=== PATIENT | male | born 1950 | race Caucasian/White ===

== ENCOUNTER 2016-05-19 07:33 | Day surgery (SDC) | payer OTHER ==
[2016-05-19] MEDS ORDERED: LIDOCAINE 1% 2 ML INJ ONE (08:03)
[2016-05-19] MEDS ORDERED: LIDOCAINE 1% 2 ML INJ ID PRN (09:01)
[2016-05-19] MEDS ORDERED: LR 1,000 ML IV SCH (09:30)
--- NOTE | 2016-05-19 11:04 | GPN ---
[f rep st] PROCEDURE NOTE DATE OF PROCEDURE: 05/19/2016 PROCEDURE PERFORMED: Colonoscopy with polypectomy, biopsy, injection, and argon plasma coagulation. 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 I n addition, he had some smaller distal hyperplastic polyps in the sigmoid colon and rectum that were removed. There was also some mild diverticulosis in the descending colon. PREPROCEDURE DIAGNOSIS: Rule out residual polyp. POSTPROCEDURE DIAGNOSIS: 1. Large amount of residual polyp in the cecum, status post snare removal with electrocautery, dest ruction of remaining tissue with argon plasma coagulation, and Mesha ink injection for tattooing for future reference. 2. 2 to 3 mm sigmoid polyp, removed en toto by cold biopsy in piecemeal fashion. 3. 5 mm semi sessile rectal polyp, removed en toto by cold snare. 4. Mild left-sided diverticulosis. INFORMED CONSENT: I had a detailed discussion with the patient regarding the procedure, alternative s, benefits, and risks including bleeding, perforation, infection, risk of medication. Informed con sent was signed and witnessed. COMPLICATIONS: None immediate. MEDICATIONS: Versed 5 mg IV, fentanyl 100 mcg IV. DESCRIPTION OF PROCEDURE: After adequate sedation and patient in left lateral decubitus position, t he visual and digital anorectal examination was performed. A forward viewing colonoscope was insert ed via the rectum and advanced under visualization into the cecum, identified by ileocecal valve, co nfluence of taenia, appendicial orifice. Residual polyp was noted at a previous polypectomy site. This is still quite large. This was removed in a piecemeal fashion with snare electrocautery. Kirsty ining residual tissue was burned with the argon plasma motion picture photographer, and the area was inked with 3 cc of Mesha ink and 1.5 injections on either side of the polyp resection spot. Upon withdrawal of the instrument, careful attention made to gross detail. The prep was good. There was an additional 2-3 mm polyp noted in the sigmoid colon removed en toto by cold biopsy. Retroflex examination did reve al a 5 mm polyp in the distal rectum removed en toto by cold snare. Patient did have mild left-side d diverticulosis in the sigmoid and descending colon. The endoscope was withdrawn confirming the ab ove findings. The patient tolerated the procedure well and was transferred to the recovery area in stable condition. IMPRESSION: 1. Large cecal residual polyp, status post piecemeal removal with snare electrocautery, argon plasm a coagulation destruction of any remaining tissue, and Mesha ink injection for future reference. 2. Small sigmoid polyp measuring 2-3 mm removed en toto by cold biopsy. 3. Small polyp in the rectum measuring approximately 5 mm, semi sessile, removed en toto by cold sn are. 4. Mild left-sided diverticulosis. RECOMMENDATIONS: 1. Follow up pathology of polyps. 2. Repeat colonoscopy in 6 months at the hospital for possible use of APC. 3. High-fiber high fluid diet. 4. No need to avoid seeds and nuts with diverticulosis. 5. Follow up with PCP as scheduled. 6. Avoid aspirin and anti-inflammatory for 1 week secondary to polypectomy. Currently, he is on no medications. If he is using aspirin for cardiac prophylaxis, he can continue that. 7. Follow up with Dr. Sims as scheduled. Thank you for allowing us to participate in this patient's healthcare. Do not hesitate to call me. /[id number]/MODL
[2016-05-19] MEDS ORDERED: fentaNYL 100 MCG/2 ML INJ ONE (14:34)
[2016-05-19] MEDS ORDERED: MIDAZOLAM 2 MG/2 ML VIAL ONE ×2 (14:34→14:36)
== END 2016-05-19 11:00 | disposition home or self-care (01) ==
LOC: FSGY 07:33
PROVIDERS: ATTEND Internal Medicine Gastroenterology
PROC: 0DBP8ZX Excision of Rectum, Via Natural or Artificial Opening Endoscopic, Diagnostic (ICD-10-PCS; principal; 2016-05-19 09:00)
PROC: 0D5E8ZZ Destruction of Large Intestine, Via Natural or Artificial Opening Endoscopic (ICD-10-PCS; principal; 2016-05-19 09:00)
PROC: 0DBN8ZX Excision of Sigmoid Colon, Via Natural or Artificial Opening Endoscopic, Diagnostic (ICD-10-PCS; principal; 2016-05-19 09:00)
PROC: 0DBH8ZX Excision of Cecum, Via Natural or Artificial Opening Endoscopic, Diagnostic (ICD-10-PCS; principal; 2016-05-19 09:00)
DX: Z12.11 Encounter for screening for malignant neoplasm of colon (principal); D12.0 Benign neoplasm of cecum; D12.5 Benign neoplasm of sigmoid colon; D12.8 Benign neoplasm of rectum; K57.30 Diverticulosis of large intestine without perforation or abscess without bleeding
CPT/HCPCS: J2250; J3010

== ENCOUNTER 2016-06-02 09:57 | Emergency (ER) | payer OTHER ==
[2016-06-02 10:02] VITALS: TEMP 97.9
--- NOTE | 2016-06-02 10:13 | EDPHY ---
H & P Time Seen by Provider: 06/02/16 10:12 HPI/ROS: CHIEF COMPLAINT: Episode of dark stool HISTORY OF PRESENT ILLNESS: This 66-year-old man had colonoscopy with polypectomy by Dr. Kenan King 2 weeks ago. 1 week ago he was driving back from [place] and started having dylan bloody stools and eventually was transferred to [facility] where he had colonoscopy by Dr. Renae on May 27. He brought the report with him and at that time he had 5 endo clips placed for bleeding in the area of his previous polypectomy. Today he had an episode of dark stools. He felt a little bit dizzy and lightheaded on standing. He had a couple of these episodes but no maroon or bloody stool. No nausea or vomiting. REVIEW OF SYSTEMS: Eye: no change in vision ENT: no sore throat Cardiac: no chest pain or syncope Pulmonary: no cough or SOB Abdomen: HPI Musculoskeletal: no back pain Skin: no rash Neuro: no headache Constitutional: no fever : no urinary symptoms A comprehensive 10 point review of systems is otherwise negative aside from elements mentioned in the history of present illness. PAST MEDICAL HISTORY: Colonoscopy with polyp removal as above, hypercholesterolemia Social history: , here with his General Appearance: Alert and conversant, cooperative. Eyes: No scleral icterus. ENT, Mouth: Normal mucous membranes. Respiratory: Normal respiratory effort, breath sounds equal, lungs are clear to auscultation. Cardiovascular: Regular rate and rhythm. Gastrointestinal: Abdomen is soft and non tender. Neurological: Alert and oriented x3. Normally conversant. Face symmetric, normal movement and sensation in all extremities. Skin: Warm and dry, no rashes. Musculoskeletal: No peripheral edema and no joint swelling. Psychiatric: Not agitated. Emergency Department course/MDM: Patient is ambulatory. He brought the stool in with him which is black and dark. He has not had maroon or red stools. Case discussed in detail with Dr. Luisito Gillette who is longwall machine operator helper for [facility] who agrees with discharge as the patient is likely just passing blood from his previous procedure. Does not appear to be highly likely he has acute new active bleed. Patient states he is comfortable with discharge will return if he gets active bleeding. Smoking Status: Never smoked Constitutional: Initial Vital Signs Temperature (C) 36.6 C 06/02/16 09:58 Heart Rate 107 H 06/02/16 09:58 Respiratory Rate 18 06/02/16 09:58 Blood Pressure 135/69 H 06/02/16 09:58 O2 Sat (%) 97 06/02/16 09:58 O2 Delivery Mode Room Air Allergies/Adverse Reactions: ampicillin [Ampicillin] Allergy (Verified 06/02/16 09:58) IV CONTRAST Allergy (Uncoded 04/24/11 14:33) Home Medications: Medication Instructions Recorded Atorvastatin Calcium [Lipitor 40 40 mg PO 06/02/16 mg (*)] Medical Decision Making Differential Diagnosis: Differential considered including but not limited to upper GI bleed, lower GI bleed, black stools from iron or food, clot sloughing. Consult/Admit Bed Type: [address] - Data Points Laboratory Results: Laboratory Results 06/02/16 10:15 06/02/16 10:15 06/02/16 06/02/16 10:15 10:15 WBC 9.60 10^3/uL H 10^3/uL (3.80-9.50) RBC 4.47 10^6/uL 10^6/uL (4.40-6.38) Hgb 13.5 g/dL L g/dL (13.7-17.5) Hct 39.9 % L % (40.0-51.0) MCV 89.3 fL fL (81.5-99.8) MCH 30.2 pg pg (27.9-34.1) MCHC 33.8 g/dL g/dL (32.4-36.7) RDW 14.3 % % (11.5-15.2) Plt Count 342 10^3/uL 10^3/uL (150-400) MPV 9.7 fL fL (8.7-11.7) Neut % (Auto) 63.6 % % (39.3-74.2) Lymph % (Auto) 26.5 % % (15.0-45.0) [place] % (Auto) 7.8 % % (4.5-13.0) Eos % (Auto) 1.0 % % (0.6-7.6) Baso % (Auto) 0.7 % % (0.3-1.7) Nucleat RBC Rel Count 0.0 % % (0.0-0.2) Absolute Neuts (auto) 6.10 10^3/uL 10^3/uL (1.70-6.50) Absolute Lymphs (auto) 2.54 10^3/uL 10^3/uL (1.00-3.00) Absolute Monos (auto) 0.75 10^3/uL 10^3/uL (0.30-0.80) Absolute Eos (auto) 0.10 10^3/uL 10^3/uL (0.03-0.40) Absolute Basos (auto) 0.07 10^3/uL 10^3/uL (0.02-0.10) Absolute Nucleated RBC 0.00 10^3/uL 10^3/uL (0-0.01) Immature Gran % 0.4 % % (0.0-1.1) Immature Gran # 0.04 10^3/uL 10^3/uL (0.00-0.10) Sodium 142 mEq/L mEq/L (134-144) Potassium 4.4 mEq/L mEq/L (3.5-5.2) Chloride 109 mEq/L mEq/L (97-110) Carbon Dioxide 23 mEq/l mEq/l (22-31) Anion Gap 10 mEq/L mEq/L (8-16) BUN 19 mg/dL mg/dL (7-23) Creatinine 1.0 mg/dL mg/dL (0.7-1.3) Estimated GFR > 60 Glucose 104 mg/dL H mg/dL (70-100) Calcium 9.4 mg/dL mg/dL (8.5-10.4) Departure - Departure Disposition: Home, Routine, Self-Care Clinical Impression: Gastrointestinal bleeding, lower Condition: Good Instructions: Flexible Sigmoidoscopy (ED) Additional Instructions: Return immediately for any further rectal bleeding, worsening dizziness or lightheadedness or fainting. Referrals: Susan Sims MD [Primary Care Provider] - As per Instructions Allen King MD [Medical Doctor] - As per Instructions
[2016-06-02 10:53] LABS: % IMMATURE GRANULYOCYTES 0.4 % (0.0-1.1); ABSOLUTE IMMATURE GRANULOCYTES 0.04 10^3/uL (0.00-0.10); ADD DIFF? NO; ADD MORPH? NO; ADD SCAN? NO; ATYPICAL LYMPHOCYTE FLAG 0 (0-99); FRAGMENT RBC FLAG 0 (0-99); HEMATOCRIT 39.9 % (40.0-51.0); HEMOGLOBIN 13.5 g/dL (13.7-17.5); LEFT SHIFT FLG 0 (0-99); LIPEMIA HEMOLYSIS FLAG 90 (0-99); MEAN CELL HEMOGLOBIN 30.2 pg (27.9-34.1); MEAN CELL HEMOGLOBIN CONCENTR. 33.8 g/dL (32.4-36.7); MEAN CELL VOLUME 89.3 fL (81.5-99.8); MEAN PLATELET VOLUME 9.7 fL (8.7-11.7); PLATELET CLUMPS FLAG 0 (0-99); PLATELET COUNT 342 10^3/uL (150-400); RED BLOOD CELL COUNT 4.47 10^6/uL (4.40-6.38); RED CELL DISTRIBUTION WIDTH 14.3 % (11.5-15.2)
[2016-06-02 10:56] LABS: ANION GAP 10 mEq/L (8-16); CALCIUM 9.4 mg/dL (8.5-10.4); CARBON DIOXIDE 23 mEq/l (22-31); CHLORIDE 109 mEq/L (97-110); GLOMERULAR FILTRATION RATE > 60; GLUCOSE 104 mg/dL (70-100); POTASSIUM 4.4 mEq/L (3.5-5.2); SODIUM 142 mEq/L (134-144)
[2016-06-02 11:01] VITALS: RESP 16; O2SAT 95
[2016-06-02 11:49] VITALS: BP 104/69; PULSE 84
== END 2016-06-02 11:48 | disposition home or self-care (01) ==
DX: K52.9 Noninfective gastroenteritis and colitis, unspecified (principal)

== ENCOUNTER → 2017-01-09 | Day surgery (SDC) | payer OTHER ==
[~2017-01-09] MED LIST: LIDOCAINE 1% 2 ML INJ ID PRN; LR 1,000 ML IV ONE; MIDAZOLAM 2 MG/2 ML VIAL IVP ONE; MIDAZOLAM 2 MG/2 ML VIAL ONE; fentaNYL 100 MCG/2 ML INJ IVP ONE; fentaNYL 100 MCG/2 ML INJ ONE
--- NOTE | 2017-01-09 12:12 | PDANEPAE ---
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 - Pulmonary History Hx COPD: No Hx Asthma/Reactive Airway Disease: No Hx Recent Upper Respiratory Infection: No Hx Oxygen in Use at Home: No Hx Sleep Apnea: No Sleep Apnea Screening Result - Last Documented: Negative - Neurologic History Hx Cerebrovascular Accident: No Hx Seizures: No Hx Dementia: No - Endocrine History Hx Diabetes: No - Renal History Hx Renal Disorders: No - Liver History Hx Hepatic Disorders: No - Neurological & Psychiatric Hx Hx Neurological and Psychiatric Disorders: No - Cancer History Hx Cancer: Yes Cancer History Comment: SKIN CA FACE REMOVED - BASAL CELL 15YRS AGO - Congenital Disorder History Hx Congenital Disorders: No - GI History Hx Gastrointestinal Disorders: Yes Gastrointestinal History Comment: HEARTBURN - TUMS - Other Health History Other Health History: CONTACT DERMATIS - Chronic Pain History Chronic Pain: No - Surgical History Prior Surgeries: T&A. EYE MUSCLE CORRECTION. ANGIOGRAM 10 YRS AGO ANE Review of Systems Review of systems is: negative Review of Systems: - Exercise capacity Exercise capacity: >=4 METS METS (RN): 4 METS ANE Patient History - Allergies Allergies/Adverse Reactions: ampicillin [Ampicillin] Allergy (Verified 06/02/16 09:58) IV CONTRAST Allergy (Uncoded 04/24/11 14:33) - Home Medications Home Medications: Atorvastatin Calcium [Lipitor 40 mg (*)] 40 mg PO 06/02/16 [Last Taken 01/08/17] - NPO status NPO Status: no food or drink >8 hours NPO Since - Liquids (Date): 01/09/17 NPO Since - Liquids (Time): 03:15 NPO Since - Solids (Date): 01/08/17 NPO Since - Solids (Time): 08:45 - Smoking Hx Smoking Status: Never smoked - Alcohol Use Alcohol Use: Rarely - Family Anes Hx Family Anes Hx: none Family Hx Anesthesia Complications: NEG ANE Labs/Vital Signs - Vital Signs Blood Pressure: 128/86 Heart Rate: 91 Respiratory Rate: 16 O2 Sat (%): 96 Height: 190.5 cm Weight: 107.501 kg ANE Physical Exam - Airway Neck exam: FROM Mallampati Score: Class 3 - Pulmonary Pulmonary: no respiratory distress - Cardiovascular Cardiovascular: regular rate and rhythym - ASA Status ASA Status: II ANE Anesthesia Plan Anesthesia Plan: GA with mask
--- NOTE | 2017-01-09 12:28 | PDPROPOC ---
Sedation Plan of Care Sedation Plan of Care: mental status noted, patient educated of risks, benefits , alternatives, patient can tolerate sedation ASA Classification: ASA 2 Planned drugs: fentanyl, midazolam Mallampati Score: Class 2 Mallampati Reference Image: 2 Patient passed 3-3-2 rule?: Yes
--- NOTE | 2017-01-09 12:30 | PDGENHP ---
History & Physical Chief Complaint: phx polyps History of Present Illness: polyps piecemela removal Pertinent Past, Social, Family History: no tobacco, one per week, no fhx cc Relevant Physical Exam: a+ox3. CTA. S1S2. +BS, soft nt Cardiorespiratory Assessment: class 2 pt
--- NOTE | 2017-01-09 13:17 | POSTOPPROG ---
Post Op Note Date of Operation: 01/09/17 Surgeon: Allen King Anesthesia: IV Sedation Pre-op Diagnosis: piecemeal polypectomy large cecal polyp Post-op Diagnosis: abnl tisue at previous polypectomy site, tiny transverse polyp, tics Indication: piecemeal polypectomy adenomatous polyp in cecum Procedure: colon with polyp, bx, fb removal (clip from post polypectomy bleed Findings: abnl tissue at cecal polyplectomy site s/p snare and bx, tiny prox tc polyp Inf/Abcess present in the surg proc area at time of surgery?: No EBL: Minimal (few ml form bx) Total fluids administered: 450 ml LR Complications: none immediate
--- NOTE | 2017-01-09 13:24 | GIREPORT ---
[facility] Surgical Services - Endoscopy Department Patient Name: Braxton Espana Procedure Date: 01/09/2017 12:37 PM Patient Type: Outpatient Attending MD/ ER Physician: David Day Procedure: Colonoscopy Indications: Surveillance: Personal history of piecemeal removal of large sessile ad enoma on last colonoscopy (less than 1 year ago) Providers: Jeremías King MD Medicines: Fentanyl 100 micrograms IV, Midazolam 5 mg IV Complications: No immediate complications. Estimated blood loss: Minimal. Description of Procedure: After obtaining informed consent, the scope was passed under direct vis ion. Throughout the procedure, the patient's blood pressure, pulse, and oxyg en saturations were monitored continuously. The Colonoscope with irrigatio n channel was introduced through the anus and advanced to the terminal il eum, with identification of the appendiceal orifice and IC valve. The colono scopy was performed without difficulty. The patient tolerated the procedure w ell. The quality of the bowel preparation was good. Findings: The digital rectal exam was normal. The terminal ileum appeared normal. A post polypectomy scar was found in the cecum. There was residual poly poid tissue. The polyp was removed with a hot snare. Resection and retrieval were complete. Estimated blood loss was minimal. Biopsies were taken with a cold forceps for histology. Estimated blood loss was minimal. Two sessile polyps were found in the proximal transverse colon. The donaldo yps were 2 mm in size. These polyps were removed with a cold biopsy forceps . Resection and retrieval were complete. Estimated blood loss was minimal . Medium-mouthed diverticula were found in the sigmoid colon, descending colon and transverse colon. A foreign body was found in the cecum. Removal of an endoclip was accomplished with a large-capacity forceps and snare. Estimated blood l oss: none. The exam was otherwise without abnormality. Estimated Blood Loss: Estimated blood loss was minimal. Post Op Diagnosis: - The examined portion of the ileum was normal. - Post-polypectomy scar in the cecum. Biopsied. - Two 2 mm polyps in the proximal transverse colon, removed with a cold biopsy forceps. Resected and retrieved. - Diverticulosis in the sigmoid colon, in the descending colon and in t he transverse colon. - Foreign body in the cecum. Removal was successful. - The examination was otherwise normal. Recommendation: - Await pathology results. - My office will call with the pathology result with 5-7 days. If you h ave not heard from my office by 14, do not assume the pathology is aida l, please call [phone] to get the pathology results. - Repeat colonoscopy in 1 year for surveillance based on pathology resu lts. - High fiber diet indefinitely. - 30-35 grams of dietary fiber per day. Can use supplemental fiber. - A high fiber diet may decrease risk of complications from diverticulo sis. There is no need to avoid seeds or nuts. - Patient has a contact number available for emergencies. The signs and symptoms of potential delayed complications were discussed with the pat ient. Return to normal activities tomorrow. Written discharge instructions we re provided to the patient. - Continue present medications. - Discharge patient to home (ambulatory). - Return to primary care physician as previously scheduled. - Thank you for allowing me to help in your patient's care. Do not hesi june to call with any questions. Attending Participation: I personally performed the entire procedure. Fernando Veronica M.D Jeremías King MD 01/09/2017 1:24:12 PM This report has been signed electronicallyMatheangely King MD Number of Addenda: 0 Note Initiated On: 01/09/2017 12:37 PM Total Procedure Duration Time 0 hours 26 minutes 54 seconds [email or web address]
[2017-01-09 13:35] VITALS: PULSE 71; RESP 16; TEMP 98.2; O2SAT 98
[2017-01-09 15:27] VITALS: BP 96/30
== END | disposition home or self-care (01) ==
LOC: FSGY 10:57
PROVIDERS: ATTEND Internal Medicine Gastroenterology
PROC: 0DBL8ZX Excision of Transverse Colon, Via Natural or Artificial Opening Endoscopic, Diagnostic (ICD-10-PCS; principal; 2017-01-09 12:15)
PROC: 0DBH8ZX Excision of Cecum, Via Natural or Artificial Opening Endoscopic, Diagnostic (ICD-10-PCS; principal; 2017-01-09 12:15)
PROC: 0DJD8ZZ Inspection of Lower Intestinal Tract, Via Natural or Artificial Opening Endoscopic (ICD-10-PCS; principal; 2017-01-09 12:15)
PROC: 0DCE8ZZ Extirpation of Matter from Large Intestine, Via Natural or Artificial Opening Endoscopic (ICD-10-PCS; principal; 2017-01-09 12:15)
DX: Z12.11 Encounter for screening for malignant neoplasm of colon (principal); Z86.010 Personal history of colon polyps; D12.3 Benign neoplasm of transverse colon; K57.30 Diverticulosis of large intestine without perforation or abscess without bleeding
CPT/HCPCS: J2250; J3010

== ENCOUNTER 2017-09-30 11:26 | Day surgery (SDC) | payer OTHER ==
[2017-09-30] MEDS ORDERED: LR 1,000 ML IV ONE (11:42)
[2017-09-30] MEDS ORDERED: LIDOCAINE 1% 2 ML INJ ID PRN (11:42)
[2017-09-30] MEDS ORDERED: LIDOCAINE 1% 300 MG/30 ML SDV ONE (11:50)
[2017-09-30] MEDS ORDERED: ROPIVACAINE HCL 150 MG/30 ML INJ ONE (11:51)
[2017-09-30] MEDS ORDERED: DEXAMETHASONE 4 MG/ML VIAL ONE (11:51)
[2017-09-30] MEDS ORDERED: BACITRACIN 50,000 UNITS/10 ML SYR IRR ONE (11:52)
--- NOTE | 2017-09-30 12:52 | PDHPUP ---
History & Physical Update H&P update statement: This history and physical update is based on an assessment of the patient which was completed after admission or registration (within 24 hours), but prior to the surgery/procedure. H&P update: H&P reviewed & patient examined (no changes in health, stable), no change in patient's condition since H&P completed
[2017-09-30] MEDS ORDERED: LIDOCAINE 2% 100 MG/5 ML SYR ONE (13:00)
[2017-09-30] MEDS ORDERED: PROPOFOL/EMULSION 500 MG/50 ML BOTTLE IV ONE ×2 (13:00→13:35)
[2017-09-30] MEDS ORDERED: ceFAZolin 2 GM/DEXTROSE 100 ML IV ONE (13:00)
--- NOTE | 2017-09-30 13:02 | PDANEPAE ---
ANE Past Medical History - Cardiovascular History Hx Hypertension: No Hx Arrhythmias: No Hx Chest Pain: No Hx Coronary Artery / Peripheral Vascular Disease: No Hx CHF / Valvular Disease: No Hx Palpitations: No Cardiovascular History Comment: hx of chest wall pain - Pulmonary History Hx COPD: No Hx Asthma/Reactive Airway Disease: No Hx Recent Upper Respiratory Infection: No Hx Oxygen in Use at Home: No Hx Sleep Apnea: No Sleep Apnea Screening Result - Last Documented: Negative - Neurologic History Hx Cerebrovascular Accident: No Hx Seizures: No Hx Dementia: No - Endocrine History Hx Diabetes: No - Renal History Hx Renal Disorders: No - Liver History Hx Hepatic Disorders: No - Neurological & Psychiatric Hx Hx Neurological and Psychiatric Disorders: No - Cancer History Hx Cancer: Yes Cancer History Comment: SKIN CA FACE REMOVED - BASAL CELL 15YRS AGO - Congenital Disorder History Hx Congenital Disorders: No - GI History Hx Gastrointestinal Disorders: Yes Gastrointestinal History Comment: reflux - Other Health History Other Health History: CONTACT DERMATIS - Chronic Pain History Chronic Pain: Yes (lower back pain) - Surgical History Prior Surgeries: T&A. EYE MUSCLE CORRECTION. ANGIOGRAM 10 YRS AGO. bilat cataract ANE Review of Systems Review of Systems: - Exercise capacity METS (RN): 4 METS ANE Patient History - Allergies Allergies/Adverse Reactions: ampicillin [Ampicillin] Allergy (Verified 09/30/17 11:53) Hives IV CONTRAST Allergy (Uncoded 09/30/17 11:53) - Home Medications Home Medications: Atorvastatin Calcium [Lipitor 40 mg (*)] 06/02/16 [Last Taken 09/23/17] Fish Oil 1000 mg (*) 09/25/17 [Last Taken 09/23/17] Flaxseed Oil 09/25/17 [Last Taken 09/23/17] Multivitamin (*) 09/25/17 [Last Taken 09/25/17] Ranitidine HCl 09/25/17 [Last Taken 09/30/17 08:40] Aspirin 81mg (*) 81 mg PO DAILY 09/30/17 [Last Taken 09/18/17] - NPO status NPO Since - Liquids (Date): 09/29/17 NPO Since - Liquids (Time): 22:00 NPO Since - Solids (Date): 09/29/17 NPO Since - Solids (Time): 20:00 - Smoking Hx Smoking Status: Never smoked - Family Anes Hx Family Hx Anesthesia Complications: none ANE Labs/Vital Signs - Vital Signs Blood Pressure: 132/77 Heart Rate: 86 Respiratory Rate: 16 O2 Sat (%): 94 Height: 187.96 cm Weight: 108.862 kg ANE Physical Exam - Airway Neck exam: FROM Mallampati Score: Class 3 Mouth exam: normal dental/mouth exam - Pulmonary Pulmonary: no respiratory distress - Cardiovascular Cardiovascular: regular rate and rhythym - ASA Status ASA Status: II ANE Anesthesia Plan Total IV Anesthesia: Yes
[2017-09-30] MEDS ORDERED: RANITIDINE 50 MG/2 ML VIAL ONE (13:07)
[2017-09-30] MEDS: BUPIVACAINE 0.25% 30 ML SDV ONE ×2 (14:03→14:28)
[2017-09-30] MEDS ORDERED: ONDANSETRON DISINTEGRATING 4 MG TAB PO PRN (14:55)
[2017-09-30] MEDS ORDERED: OXYCODONE/APAP 5/325 TAB PO PRN (14:55)
--- NOTE | 2017-09-30 14:55 | POSTOPPROG ---
Post Op Note Date of Operation: 09/30/17 Surgeon: Donna Mahmood Supervisor [employer]ing [employer] Stamping: Ольга mahmood Anesthesiologist: danielle finn Pre-op Diagnosis: painful 2nd HT, capsulitis/metatarsalgia 2nd MT, left Post-op Diagnosis: same Indication: pain Procedure: HT repair (arthrodesis) 2nd, osteotomy 2nd MT, left Findings: thinning articular cartilage 2nd MTH Inf/Abcess present in the surg proc area at time of surgery?: No EBL: Minimal Complications: none
[2017-09-30] MEDS ORDERED: ALBUTEROL 3 ML DEYVIAL IH PRN (14:57)
[2017-09-30] MEDS ORDERED: NALOXONE HCL 0.4 MG/ML INJ IVP PRN (14:57)
[2017-09-30] MEDS ORDERED: ONDANSETRON 4 MG/2 ML VIAL IVP PRN (14:57)
--- NOTE | 2017-09-30 14:58 | POSTANESTH ---
Post Anesthetic Evaluation Cardiovascular Status: Similar to Pre-Op Cond Respiratory Status: Similar to Pre-op Cond. Level of Consciousness/Mental Status: Alert and Oriented Pain Control: Adequate, Prn Tx Ordered Nausea/Vomiting Control: Adequate, Prn Tx Ordered Complications Possibly Related to Anesthesia: None Noted
[2017-09-30 16:05] VITALS: BP 131/71
--- NOTE | 2017-09-30 19:43 | GOP ---
[f rep st] OPERATIVE REPORT DATE OF OPERATION: 09/30/2017 SURGEON: Donna Chauhan DPM DRAMATIC TEACHER: Олгьа Chauhan DPM. ANESTHESIA: IV sedation with local. ANESTHESIOLOGIST: Castro Chang MD. PREOPERATIVE DIAGNOSIS: Painful 2nd hammertoe deformity with capsulitis and metatarsalgia, 2nd metat arsal, left foot. POSTOPERATIVE DIAGNOSIS: Second hammertoe deformity with synovitis and mild thinning of the articula r surface of the head of the 2nd metatarsal with some squaring. PROCEDURE PERFORMED: Hammertoe reduction with arthrodesis procedure and screw fixation, decompressio n, shortening osteotomy 2nd metatarsal with screw fixation, all left foot. FINDINGS: DESCRIPTION OF PROCEDURE: The patient presented to the hospital approximately an hour and a half rah or to foot surgery after having been n.p.o. past midnight. Patient's preoperative history was review ed and there were no contraindications to the proposed procedure. The patient's labs were reviewed, and his white blood cell count was slightly high. Recommend repeat CBC in 1 week. The patient was g iven Ancef 2 g IV 1/2 hour prior to foot surgery. The patient had no problems with the IV antibiotic . The patient was taken to the OR room and placed on the OR table in a supine position where the approp riate anesthetic agents were administered. This was supplemented with a local block to his left foot utilizing a total of 15 cc of a 1:1 mixture of 1% lidocaine with 0.5% of ropivacaine given to the le ft forefoot proximal to the 2nd metatarsal and to the posterior tibial nerve at the level of the medi al ankle. The left lower extremity was then prepped and draped in usual aseptic fashion and covered with a sterile stockinette. A sterile pneumatic ankle tourniquet was applied and padded well underne ath with Webril. Utilizing elevation overlying Esmarch bandage, the foot was exsanguinated, and the tourniquet was inflated to a pressure of 230 mmHg. The foot was lowered to the orthopedic table. At tention was then directed to the dorsal aspect of the 2nd digit in the area of the contracture at the level of the proximal interphalangeal joint and a linear skin incision was made extending from the l evel of the proximal interphalangeal joint proximally to the level of the 2nd metatarsophalangeal michelet nt and then over the distal 2nd metatarsal. The incision was deepened through the subcutaneous tissu es to the level of the extensor tendon taking care to preserve neurovascular structures. Any bleeder s were clamped and cauterized as needed. The extensor tendon was incised transversely at the level o f the proximal interphalangeal joint and was freed from the surrounding soft tissue structures in a d istal proximal fashion so as to release the contracture at the level of the extensor salter. The capsu lar tissues were reflected off the head of the proximal phalanx and base of the middle phalanx and th en the articular surfaces were resected with a sagittal saw in a dorsal to plantar direction perpendi cular to the shaft of the phalanges. The head of the proximal phalanx and base of the middle phalanx were then placed on the back table. Utilizing the K-wire, a captain/airline pilot hole was created to the center as pect of the distal proximal phalanx. Attention was then directed to the dorsal aspect of the 2nd met atarsophalangeal joint where a linear capsular incision was made and the 1st metatarsophalangeal join t was inspected. There was synovitic tissue to the joint and thinning of the articular surface to th e head of the 1st metatarsal. The shape of the 2nd metatarsal was not round but more square. No art icular defects were present. The decision was made to perform a distal osteotomy to the 2nd metatars al in view of the findings and synovitic tissue. An osteotomy was then created to the distal 1st met atarsal in a distal to proximal fashion. The 2nd metatarsal head then glided proximally, and then it was held approximately 2 mm shorter than its anatomical length. Two guidewires for the screws were then placed in a dorsal distal to plantar proximal direction crossing the osteotomy site for placemen t of the [place] screws. The 1st [place] screw was a 2.5 x 14 mm headless screw. The 2nd more proxi mal screw was a headed 2.5 x 15 mm screw. A C-arm was checked to confirm alignment and placement of the screws, which was optimal. The K-wires were removed. The surgical site was copiously irrigated with sterile saline bacitracin solution. Attention was redirected to the proximal interphalangeal yara int where the guidewire for the 2.0 headless screw was advanced through the center aspect of the base of the middle phalanx, so as to exit the distal tip of the digit. The middle phalanx was then held flush to the proximal phalanx and the K-wire was retrograded proximally. Measurements were obtained, and the decision was made to place a 46 mm 2.0 headless screw across the K-wire, which was performed . Again, the C-arm was utilized to check alignment and placement to check alignment of the digit, wh ich was intact and rectus. The dorsal ledge of bone to the distal 2nd metatarsal was resected and pl aced on the back table. There were no prominent bony borders to the osteotomy site distally. Surgic al sites were copiously irrigated with a sterile saline bacitracin solution. The tourniquet was rele ased. There was immediate capillary refill to all digits. There was hemostasis. The capsular tissu es were reapproximated with 3-0 Vicryl. The extensor tendon was lengthened to the 2nd digit and reap proximated with 3-0 Vicryl. Subcutaneous tissues were reapproximated with 4-0 Monocryl. The skin wa s reapproximated with 4-0 Prolene utilizing interrupted horizontal mattress sutures. The procedure went well without complications. A mildly compressive dry sterile gauze dressing was a pplied with Xeroform, 4 x 4 gauze, Shruti, and an Parker bandage. The patient tolerated the procedure an d anesthesia well and transferred to the recovery room with vital signs stable and vascular status in tact to the left lower extremity. In the recovery room, the patient received postoperative oral and written home care instructions. The patient instructed to utilize crutches for ambulation assist and can bear weight on the left heel for balance but is instructed not to bear weight on the forefoot. He can also use a rollabout for ambulation assist. He was dispensed a CryoCuff and instructed on its usage. Prescription for Percocet was given to take postoperatively as prescribed for pain as needed . He was permitted to take oral anti-inflammatories the 1st 2 days after surgery if needed for pain and swelling. He is scheduled for his 1st postoperative visit in 2 days. Please call the office ear lier if any questions or problems should arise. Postoperative radiographs were ordered and reviewed. The patient was given additional 5 cc of 0.5% b upivacaine prior to application of sterile gauze dressing. /[id number]/MODL
== END 2017-09-30 16:35 | disposition home or self-care (01) ==
LOC: FSGY 11:26
PROVIDERS: ATTEND Podiatrist
PROC: 0QBP0ZZ Excision of Left Metatarsal, Open Approach (ICD-10-PCS; principal; 2017-09-30 13:00)
PROC: 0SGQ04Z Fusion of Left Toe Phalangeal Joint with Internal Fixation Device, Open Approach (ICD-10-PCS; principal; 2017-09-30 13:00)
DX: M20.42 Other hammer toe(s) (acquired), left foot (principal); M65.9 Synovitis and tenosynovitis, unspecified; M77.42 Metatarsalgia, left foot; M79.672 Pain in left foot; I25.10 Atherosclerotic heart disease of native coronary artery without angina pectoris; E78.5 Hyperlipidemia, unspecified; Z88.0 Allergy status to penicillin
CPT/HCPCS: C1713; J0690; J1100; J2001; J2704; J2780; J2795

== ENCOUNTER 2018-02-16 10:26 | Day surgery (SDC) | payer OTHER ==
[2018-02-16] MEDS ORDERED: LR 1,000 ML IV ONE (10:40)
--- NOTE | 2018-02-16 11:55 | PDPROPOC ---
Sedation Plan of Care Sedation Plan of Care: vital signs stable, mental status noted, patient educated of risks, benefits, alternatives, patient can tolerate sedation ASA Classification: ASA 2 Planned drugs: fentanyl, midazolam Mallampati Score: Class 2 Mallampati Reference Image: Patient passed 3-3-2 rule?: Yes
--- NOTE | 2018-02-16 11:55 | PDGENHP ---
History & Physical Chief Complaint: phx large sessile polyp History of Present Illness: phx polyps Pertinent Past, Social, Family History: no tobacco, alcohol one per week, no fhx cc Relevant Physical Exam: A+Ox3. CTA. S1S2. +BS, soft nt Cardiorespiratory Assessment: class 2
[2018-02-16] MEDS ORDERED: MIDAZOLAM 2 MG/2 ML VIAL ONE (12:04)
[2018-02-16] MEDS ORDERED: fentaNYL 100 MCG/2 ML INJ ONE (12:04)
[2018-02-16] MEDS ORDERED: fentaNYL 100 MCG/2 ML INJ IVP ONE (12:25)
[2018-02-16] MEDS ORDERED: MIDAZOLAM 2 MG/2 ML VIAL IVP ONE (12:25)
--- NOTE | 2018-02-16 13:09 | GIREPORT ---
[facility] - Endoscopy Department Patient Name: Braxton Espana Procedure Date: 02/16/2018 10:52 AM Patient Type: Outpatient Attending MD/ ER Physician: Allen King MD Procedure: Colonoscopy Indications: High risk colon cancer surveillance: Personal history of adenoma (10 mm or greater in size), , High risk colon cancer surveillance: Personal histo ry of adenoma with villous component, piecemeal removal Providers: Allen King MD Referring MD: Susan Sims MD Medicines: Fentanyl 100 micrograms IV, Midazolam 6 mg IV Complications: No immediate complications. Estimated blood loss: Minimal. Description of Procedure: After obtaining informed consent, the scope was passed under direct vis ion. Throughout the procedure, the patient's blood pressure, pulse, and oxyg en saturations were monitored continuously. The Colonoscope with irrigatio n channel was introduced through the anus and advanced to the cecum, identified by the appendiceal orifice, ileocecal valve and palpation. T he colonoscopy was performed without difficulty. The patient tolerated the procedure well. The quality of the bowel preparation was good. Findings: The digital rectal exam was normal. A post polypectomy scar was found in the cecum. There was residual poly poid tissue. Biopsies were taken with a cold forceps for histology. Estimate d blood loss was minimal. Fulguration to ablate a substantial remaining portion of the lesion by argon plasma at 0.5 liters/minute and 20 gomez was successful. Estimated blood loss was minimal. Two sessile polyps were found in the ascending colon. The polyps were 2 to 3 mm in size. These polyps were removed with a cold biopsy forceps. Resec tion and retrieval were complete. Estimated blood loss was minimal. A 3 mm polyp was found in the transverse colon. The polyp was sessile. The polyp was removed with a piecemeal technique using a cold biopsy forcep s. Resection and retrieval were complete. Estimated blood loss was minimal . A 5 mm polyp was found in the sigmoid colon. The polyp was semi-sessile . The polyp was removed with a cold snare. Resection and retrieval were compl ete. Estimated blood loss was minimal. A few medium-mouthed diverticula were found in the sigmoid colon and descending colon. The exam was otherwise without abnormality. Estimated Blood Loss: Estimated blood loss was minimal. Post Op Diagnosis: - Post-polypectomy scar in the cecum. Biopsied. Treated with argon plas ma coagulation (APC). - Two 2 to 3 mm polyps in the ascending colon, removed with a cold biop sy forceps. Resected and retrieved. - One 3 mm polyp in the transverse colon, removed piecemeal using a col d biopsy forceps. Resected and retrieved. - One 5 mm polyp in the sigmoid colon, removed with a cold snare. Resec christiano and retrieved. - Diverticulosis in the sigmoid colon and in the descending colon. - The examination was otherwise normal. Recommendation: - Await pathology results. - My office will call with the pathology result with 5-7 days. If you h ave not heard from my office by 14, do not assume the pathology is aida l, please call [phone] to get the pathology results. - Repeat colonoscopy in 2 years for surveillance based on pathology res ults. If no precancerous tissue in cecal biopsy, then two years is correct. - High fiber diet indefinitely. - 30-35 grams of dietary fiber per day. Can use supplemental fiber. - A high fiber diet may decrease risk of complications from diverticulo sis. There is no need to avoid seeds or nuts. - Discharge patient to home (ambulatory). - Return to primary care physician as previously scheduled. - Thank you for allowing me to help in your patient's care. Do not hesi june to call with any questions. Attending Participation: I personally performed the entire procedure. Fernando Veronica M.D Allen King MD 02/16/2018 1:08:38 PM This report has been signed electronicallyMatthew MD Fernando Number of Addenda: 0 Note Initiated On: 02/16/2018 10:52 AM [email or web address]
[2018-02-16 13:11] VITALS: BP 106/60
== END 2018-02-16 13:30 | disposition home or self-care (01) ==
LOC: FSGY 10:26
PROVIDERS: ATTEND Internal Medicine Gastroenterology
PROC: 0DBH8ZX Excision of Cecum, Via Natural or Artificial Opening Endoscopic, Diagnostic (ICD-10-PCS; principal; 2018-02-16 12:00)
PROC: 0DBK8ZX Excision of Ascending Colon, Via Natural or Artificial Opening Endoscopic, Diagnostic (ICD-10-PCS; principal; 2018-02-16 12:00)
PROC: 0DBN8ZX Excision of Sigmoid Colon, Via Natural or Artificial Opening Endoscopic, Diagnostic (ICD-10-PCS; principal; 2018-02-16 12:00)
PROC: 0DBL8ZX Excision of Transverse Colon, Via Natural or Artificial Opening Endoscopic, Diagnostic (ICD-10-PCS; principal; 2018-02-16 12:00)
DX: Z86.010 Personal history of colon polyps (principal); D12.2 Benign neoplasm of ascending colon; D12.3 Benign neoplasm of transverse colon; D12.5 Benign neoplasm of sigmoid colon
CPT/HCPCS: J2250; J3010

== ENCOUNTER 2018-02-23 11:33 | Day surgery (SDC) | payer OTHER ==
[2018-02-23] MEDS ORDERED: LR 1,000 ML IV ONE (12:15)
[2018-02-23] MEDS ORDERED: BACITRACIN 50,000 UNITS/10 ML SYR IRR ONE (12:19)
[2018-02-23] MEDS ORDERED: ceFAZolin 2 GM/DEXTROSE 100 ML IV ONE (12:19)
[2018-02-23] MEDS ORDERED: ROPIVACAINE HCL 150 MG/30 ML INJ ONE (12:19)
[2018-02-23] MEDS ORDERED: LIDOCAINE 1% 300 MG/30 ML SDV ONE (12:19)
[2018-02-23] MEDS ORDERED: BUPIVACAINE 0.5% 30 ML SDV ONE (12:19)
[2018-02-23] MEDS ORDERED: PROPOFOL/EMULSION 500 MG/50 ML BOTTLE IV ONE (13:04)
[2018-02-23] MEDS ORDERED: fentaNYL 100 MCG/2 ML INJ ONE (13:04)
--- NOTE | 2018-02-23 13:05 | PDHPUP ---
History & Physical Update H&P update statement: This history and physical update is based on an assessment of the patient which was completed after admission or registration (within 24 hours), but prior to the surgery/procedure. H&P update: H&P reviewed & patient examined (no changes in health.), no change in patient's condition since H&P completed
[2018-02-23] MEDS ORDERED: LIDOCAINE 2% 5 ML SDV ONE (13:07)
[2018-02-23] MEDS ORDERED: ACETAMINOPHEN 500 MG TAB PO PRN (13:22)
[2018-02-23] MEDS ORDERED: fentaNYL 100 MCG/2 ML INJ IVP PRN (13:22)
[2018-02-23] MEDS ORDERED: HYDROCODONE/APAP 5/325 TAB PO PRN (13:22)
[2018-02-23] MEDS ORDERED: oxyCODONE IR 5 MG TAB PO PRN (13:22)
[2018-02-23] MEDS ORDERED: ONDANSETRON 4 MG/2 ML VIAL IVP PRN (13:22)
[2018-02-23] MEDS ORDERED: NALOXONE HCL 0.4 MG/ML INJ IVP PRN (13:22)
[2018-02-23] MEDS ORDERED: PROMETHAZINE HCL 25 MG/ML INJ IVP PRN (13:22)
[2018-02-23] MEDS ORDERED: LR 500 ML IV PRN (13:22)
[2018-02-23] MEDS ORDERED: ALBUTEROL 3 ML DEYVIAL IH PRN (13:22)
[2018-02-23] MEDS ORDERED: HYDROmorphONE/DILAUDID 2 MG/ML INJ IVP PRN (13:22)
--- NOTE | 2018-02-23 13:22 | PDANEPAE ---
ANE History of Present Illness left foot hardware removal ANE Past Medical History - Cardiovascular History Hx Hypertension: No Hx Arrhythmias: No Hx Chest Pain: No Hx Coronary Artery / Peripheral Vascular Disease: No Hx CHF / Valvular Disease: No Hx Palpitations: No Cardiovascular History Comment: hx of chest wall pain - Pulmonary History Hx COPD: No Hx Asthma/Reactive Airway Disease: No Hx Recent Upper Respiratory Infection: No Hx Oxygen in Use at Home: No Hx Sleep Apnea: No Sleep Apnea Screening Result - Last Documented: Negative - Neurologic History Hx Cerebrovascular Accident: No Hx Seizures: No Hx Dementia: No - Endocrine History Hx Diabetes: No - Renal History Hx Renal Disorders: No - Liver History Hx Hepatic Disorders: No - Neurological & Psychiatric Hx Hx Neurological and Psychiatric Disorders: No - Cancer History Hx Cancer: Yes Cancer History Comment: SKIN CA FACE REMOVED - BASAL CELL 15YRS AGO - Congenital Disorder History Hx Congenital Disorders: No - GI History Hx Gastrointestinal Disorders: Yes Gastrointestinal History Comment: reflux - Other Health History Other Health History: wears glasses. intermittent CONTACT DERMATIS to chest, stomach - Chronic Pain History Chronic Pain: Yes (lower back pain) - Surgical History Prior Surgeries: 02/16/18 colonoscopy with APC. 09/30/17 left 2nd hammer toe correction with Gonzalez Chauhan. T&A. EYE MUSCLE CORRECTION. ANGIOGRAM 10 YRS AGO. bilat cataract ANE Review of Systems Review of Systems: - Exercise capacity METS (RN): 4 METS ANE Patient History - Allergies Allergies/Adverse Reactions: ampicillin [Ampicillin] Allergy (Verified 02/22/18 14:29) Hives IV CONTRAST Allergy (Uncoded 02/22/18 14:29) SLIGHT TROUBLE BREATHING - Home Medications Home medications: home medication list seen and reviewed Home Medications: Atorvastatin Calcium [Lipitor 40 mg (*)] 06/02/16 [Last Taken 02/22/18] Fish Oil 1000 mg (*) 09/25/17 [Last Taken 02/18/18] Flaxseed Oil 09/25/17 [Last Taken 02/18/18] Multivitamin (*) 09/25/17 [Last Taken 02/18/18] Ranitidine HCl 09/25/17 [Last Taken 02/23/18] Aspirin 81mg (*) 09/30/17 [Last Taken 1 Week Ago ~02/09/18] - NPO status NPO Since - Liquids (Date): 02/23/18 NPO Since - Liquids (Time): 09:00 NPO Since - Solids (Date): 02/22/18 NPO Since - Solids (Time): 21:00 - Smoking Hx Smoking Status: Never smoked - Family Anes Hx Family Hx Anesthesia Complications: none ANE Labs/Vital Signs - Vital Signs Blood Pressure: 143/81 Heart Rate: 78 Respiratory Rate: 16 O2 Sat (%): 95 Height: 187.96 cm Weight: 108.862 kg ANE Physical Exam - Airway Neck exam: FROM Mallampati Score: Class 2 Mouth exam: normal dental/mouth exam - Pulmonary Pulmonary: no respiratory distress - Cardiovascular Cardiovascular: regular rate and rhythym - ASA Status ASA Status: II ANE Anesthesia Plan Anesthesia Plan: GA with mask Urgent/Emergent Case: Balwinder connors completed preop but documented later for safe timely pt care
--- NOTE | 2018-02-23 13:22 | POSTANESTH ---
Post Anesthetic Evaluation Cardiovascular Status: Normal, Stable Respiratory Status: Normal, Stable Level of Consciousness/Mental Status: Can Participate in Eval, Alert and Oriented Pain Control: Adequate, Prn Tx Ordered Nausea/Vomiting Control: Adequate, Prn Tx Ordered Complications Possibly Related to Anesthesia: None Noted
[2018-02-23] MEDS ORDERED: KETOROLAC 30 MG/1 ML SDV ONE (13:41)
--- NOTE | 2018-02-23 14:09 | POSTOPPROG ---
Post Op Note Date of Operation: 02/23/18 Surgeon: Donna Chauhan Anesthesiologist: Poncho Timmons Pre-op Diagnosis: painful internal hardware Post-op Diagnosis: same Indication: pain, edema Procedure: removal of internal fixation left foot , x 3 screws Inf/Abcess present in the surg proc area at time of surgery?: No Complications: none
[2018-02-23 15:39] VITALS: BP 125/62
--- NOTE | 2018-02-24 03:06 | GOP ---
DATE OF OPERATION: 02/23/2018 SURGEON: Donna Chauhan DPM ANESTHESIA: IV sedation with local. ANESTHESIOLOGIST: Poncho Timmons MD PREOPERATIVE DIAGNOSIS: Painful internal fixation, 2nd metatarsal and 2nd digit with edema, left foot. POSTOPERATIVE DIAGNOSIS: Painful internal fixation, 2nd metatarsal and 2nd digit with edema, left foot. PROCEDURE PERFORMED: Removal of 2 screws from the 2nd metatarsal and single screw from the 2nd digit, left foot. FINDINGS: INDICATIONS: Patient presented to the hospital approximately an hour and half prior to foot surgery after having been n.p.o. past midnight. Patient's past medical history was reviewed. There were no contraindications to the proposed procedure. Patient was given Ancef 2 g IV 1/2 hour prior to foot surgery. DESCRIPTION OF PROCEDURE: Patient was taken to the OR and placed on the OR table in a supine position, where the appropriate anesthetic agents were administered. This was supplemented with a local block to the left foot utilizing a total of 10 cc of 0.5% Naropin with 6 cc of 1% lidocaine plain given in a Saucedo block fashion to the base of the 2nd metatarsal, left foot. Left lower extremity was then prepped and draped in the usual aseptic fashion and covered with a sterile stockinette. A sterile pneumatic ankle tourniquet was applied and padded well underneath with Webril. Utilizing elevation and overlying Esmarch bandage, the foot was exsanguinated and the tourniquet was inflated to a pressure of 225 mmHg. The foot was then lowered to the orthopedic table. Attention was then directed first to the tip of the 2nd digit , where a linear incision was made approximately 5-7 mm in length to the tip of the digit overlying the screw head. The incision was deepened to the level of the distal tip of the phalanx, and the screw head was identified. Soft tissue structures were freed from the screw head and the screw was removed without complications and placed on the back table. Attention was then directed to the dorsal aspect of the 2nd metatarsophalangeal joint, where an approximately 2 cm linear longitudinal incision was made centered over the 2nd metatarsophalangeal joint. Incision was deepened through the subcutaneous tissues to the level of the capsular tissues, taking care to preserve neurovascular structures. The incision was made lateral to the extensor tendon. There was significant thickness of the subcutaneous tissues consistent some with scar tissue and some with edema. Any bleeders were clamped and cauterized as needed. A linear capsular incision was made and the capsular tissues were freed from the dorsal aspect of the head of the 2nd metatarsal and both screws were identified. Both screws were then removed with a screwdriver without complications and placed on the back table. Both surgical sites were copiously irrigated with a sterile saline bacitracin solution. The capsular tissues were reapproximated with 3-0 Vicryl. The tourniquet was released and there was immediate capillary refill to all digits, and there was hemostasis. The skin was reapproximated utilizing 4-0 Prolene with interrupted horizontal mattress sutures to both the tip of the 2nd digit and to the dorsal aspect of the 2nd metatarsophalangeal joint. A mildly compressive dry sterile gauze dressing was applied with Xeroform, 4 x 4 gauze, Shruti, and Coban. The patient tolerated the procedure and anesthesia well, was transferred to the recovery room with vital signs stable and vascular status intact to the left lower extremity. In the recovery room, the patient received postoperative oral and written home care instructions. The patient was dispensed a Darco shoe to wear at all times when weightbearing. He is scheduled for his first postoperative visit in 3 days. Please call the office earlier if any questions or problems should arise. /[id number]/MODL MTDD
== END 2018-02-23 16:10 | disposition home or self-care (01) ==
LOC: FSGY 11:33
PROVIDERS: ATTEND Podiatrist
DX: T84.84XA Pain due to internal orthopedic prosthetic devices, implants and grafts, initial encounter (principal)
CPT/HCPCS: J0690; J1885; J2704; J2795; J3010